=== PATIENT | male | born 2000 | race Two or more races ===

== ENCOUNTER 2022-12-09 18:01 | Emergency (ER) | payer SELFPAY ==
[~2022-12-09] VITALS: Ht 172.7 cm; Wt 80.0 kg
[2022-12-09 18:09] VITALS: BP 144/81
[2022-12-09] MEDS ORDERED: ondansetron 4mg rapidly disintigrating tab PO ONE (19:30)
[2022-12-09] MEDS ORDERED: ONDA4TAB12 PO (19:38)
[2022-12-09 19:39] LABS: CLARITY,URINE CLOUDY (Clear); COLOR,URINE YELLOW (Yellow); GLUCOSE, URINE NEGATIVE (Neg); KETONES,URINE NEGATIVE (Neg); LEUKOCYTE ESTERASE ,URINE NEGATIVE (Neg); NITRITES, URINE NEGATIVE (Neg); OCCULT BLOOD,URINE NEGATIVE (Neg); PROTEIN,URINE NEGATIVE (Neg)
[2022-12-09 19:44] LABS: UA COLLECTION TYPE CLN CATCH MIDSTREAM
[2022-12-09 19:45] LABS: HYALINE CASTS 0-3 /LPF (NEGATIVE); MUCUS STRANDS MANY /LPF (Neg); SQUAMOUS EPITHELIAL CELL,UR MANY /LPF (FEW)
[2022-12-09 19:46] LABS: WBC,URINE 30-50 /HPF (0-4)
[2022-12-09 19:47] LABS: BACTERIA,URINE FEW /HPF (Neg)
== END 2022-12-09 19:36 | disposition left against medical advice (07) ==
LOC: ER 18:02
DX: A08.4 Viral intestinal infection, unspecified (principal)
CPT/HCPCS: 81001; 99283